=== PATIENT | male | born 1980 | race American Indian/Alaskan Native ===

== ENCOUNTER 2020-06-09 00:08 | Emergency (ER) | payer SELFPAY ==
[2020-06-09] MEDS ORDERED: SODIUM CHLORIDE 0.9% 1000 ML 1,000 ML ONE (00:10)
[2020-06-09] MEDS ORDERED: ADENOSINE 6 MG/2 ML INJ IV ONE ×2 (00:12→00:15)
[2020-06-09] MEDS ORDERED: dilTIAZem 25 MG/5 ML INJ IV ONE (00:20)
--- NOTE | 2020-06-09 00:25 | Emergency Department Report ---
ED Palpitations HPI - General Stated Complaint: SVT Time Seen by Provider: 06/09/20 00:12 Source: patient, EMS - History of Present Illness Initial Comments: Patient is 39 years old male with no significant past medical history except for asthma. Patient presented to the ER via EMS from a local urgent care after patient was checked in for palpitation patient found to have SVT on an EKG with a heart rate of 210. Patient is started on oxygen and some vagal maneuver with no improvement. Upon arrival to the ER patient is alert, oriented x3 in no acute distress. Patient is complaining of chest pain and shortness of breath. 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 Patient given adenosine 6 mg with no improvement followed by another 12 mg with no change. Patient given 10 mg of Cardizem and patient immediately converted with a heart rate of 109 beats per minutes. Patient stated that he is feeling much better. MD Complaint: rapid heart beat, "heart racing", palpitations -: Sudden, This evening Context: occured during rest - Related Data Allergies Allergy/AdvReac Type Severity Reaction Status Date / Time iodine Allergy Shortness Verified 06/09/20 00:39 of Breath ED Review of Systems ROS: Stated complaint: SVT Other details as noted in HPI Comment: All other systems reviewed and negative Constitutional: denies: chills, fever Respiratory: denies: cough, shortness of breath, SOB with exertion, SOB at rest, wheezing Cardiovascular: denies: chest pain, palpitations Gastrointestinal: denies: abdominal pain, nausea, vomiting Musculoskeletal: denies: back pain Neurological: denies: headache, weakness, numbness, paresthesias, confusion, abnormal gait ED Physical Exam - General General appearance: alert, in no apparent distress - Head Head exam: Present: atraumatic, normocephalic, normal inspection - Eye Eye exam: Present: normal appearance - ENT ENT exam: Present: normal orophraynx - Neck Neck exam: Present: normal inspection, full ROM. Absent: tenderness, meningismus - Respiratory Respiratory exam: Present: normal lung sounds bilaterally - Cardiovascular Cardiovascular Exam: Present: tachycardia - GI/Abdominal GI/Abdominal exam: Present: soft, normal bowel sounds. Absent: distended, tenderness, guarding, rebound, rigid, mass, bruit, pulsatile mass, hernia - Extremities Exam Extremities exam: Present: normal inspection, full ROM, normal capillary refill - Back Exam Back exam: Present: normal inspection, full ROM. Absent: CVA tenderness (R), CVA tenderness (L) - Neurological Exam Neurological exam: Present: alert, oriented X3, CN II-XII intact, normal gait, reflexes normal - Psychiatric Psychiatric exam: Present: normal mood - Skin Skin exam: Present: warm, intact, normal color ED Course Vital Signs 06/09/20 06/09/20 06/09/20 00:12 00:20 00:35 Temperature 99.5 F Pulse Rate 220 H 220 H Respiratory 16 20 Rate Blood Pressure 103/53 108/52 O2 Sat by Pulse 99 Oximetry 06/09/20 06/09/20 06/09/20 00:38 00:40 00:46 Temperature Pulse Rate 103 H 106 H 107 H Respiratory 10 L 16 16 Rate Blood Pressure 105/78 102/75 O2 Sat by Pulse 100 100 100 Oximetry 06/09/20 06/09/20 06/09/20 00:50 00:56 01:00 Temperature Pulse Rate 105 H 113 H 106 H Respiratory 21 21 20 Rate Blood Pressure 105/75 105/75 101/69 O2 Sat by Pulse 100 100 100 Oximetry 06/09/20 06/09/20 06/09/20 01:06 01:10 01:16 Temperature Pulse Rate 104 H 104 H 101 H Respiratory 16 14 12 Rate Blood Pressure 97/68 94/61 108/71 O2 Sat by Pulse 100 100 100 Oximetry 06/09/20 06/09/20 06/09/20 01:30 01:46 02:00 Temperature Pulse Rate 98 H 93 H 98 H Respiratory 17 13 16 Rate Blood Pressure 110/67 106/74 107/66 O2 Sat by Pulse 100 100 98 Oximetry 06/09/20 06/09/20 06/09/20 02:16 02:30 02:46 Temperature Pulse Rate 99 H 92 H 88 Respiratory 20 18 15 Rate Blood Pressure 102/71 102/71 105/78 O2 Sat by Pulse 100 100 100 Oximetry ED Medical Decision Making - Lab Data Result diagrams: 06/09/20 01:24 06/09/20 01:24 - EKG Data -: EKG Interpreted by Ok Rate: tachycardia - EKG Data 06/09/20 03:02 SVT with a heart rate of 205. - Radiology Data Radiology results: report reviewed - Medical Decision Making Patient is 39 years old male with no significant past medical history except for asthma. Patient presented to the ER via EMS from a local urgent care after patient was checked in for palpitation patient found to have SVT on an EKG with a heart rate of 210. Patient is started on oxygen and some vagal maneuver with no improvement. Upon arrival to the ER patient is alert, oriented x3 in no acute distress. Patient is complaining of chest pain and shortness of breath. 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 Patient given adenosine 6 mg with no improvement followed by another 12 mg with no change. Patient given 10 mg of Cardizem and patient immediately converted with a heart rate of 109 beats per minutes. Patient stated that he is feeling much better. Patient remained asymptomatic in the emergency room. Patient observed in the ER for more than 3 hours with no recurrence of his SVT. Labs reviewed and is unremarkable. Chest x-ray is negative. Patient advised to follow-up with cardiology in the next 2 to 3 days and to return to the ER if he develop any new symptoms. Critical Care Time: Yes Critical care time in (mins) excluding proc time.: 30 Critical care attestation.: If time is entered above; I have spent that time in minutes in the direct care of this critically ill patient, excluding procedure time. ED Disposition Clinical Impression: Sustained SVT Disposition: DC-01 TO HOME OR SELFCARE Is pt being admited?: No Condition: Stable Instructions: Supraventricular Tachycardia, Adult Referrals: PRIMARY CARE [Primary Care Provider] - 3-5 Days [facility] [Provider Group] - 3-5 Days
--- NOTE | 2020-06-09 00:45 | XRay Report ---
XR chest 1V ap INDICATION / CLINICAL INFORMATION: Chest Pain. COMPARISON: None available. FINDINGS: SUPPORT DEVICES: None. HEART /PULMONARY VASCULATURE: No significant abnormality. LUNGS / PLEURA: No significant pulmonary or pleural abnormality. No pneumothorax. ADDITIONAL FINDINGS: No significant additional findings. IMPRESSION: 1. No acute findings. Signer Name: Joon Rg MD Signed: 06/09/2020 12:40 AM Workstation Name: [id number]
[2020-06-09] MEDS ORDERED: SODIUM CHLORIDE 0.9% 1000 ML 1,000 ML IV ONE ×2 (00:47→00:48)
[2020-06-09 00:53] LABS: Mean Corpuscular HGB Conc 34 % (32-34); Mean Corpuscular Volume 104 fl (84-94); Platelet Count 130 K/mm3 (140-440); Red Blood Count 1.41 M/mm3 (3.65-5.03); Red Cell Distribution Width 14.1 % (13.2-15.2)
[2020-06-09 00:56] LABS: Blood Urea Nitrogen 4 mg/dL (9-20); Hemolysis Index 4
[2020-06-09 01:03] LABS: INR 2.84 (0.87-1.13)
[2020-06-09 01:04] LABS: Partial Thromboplastin Time 49.6 Sec. (24.2-36.6)
[2020-06-09 01:15] LABS: Hematocrit 14.7 % (35.5-45.6)
[2020-06-09 01:20] LABS: BUN/Creatinine Ratio 20
[2020-06-09 01:21] LABS: Calcium 2.4 mg/dL (8.4-10.2)
[2020-06-09 01:44] LABS: Amphetamine Screen,Urine PRESUMPTIVE NEGATIVE; Benzodiazepines Screen,Urine PRESUMPTIVE NEGATIVE; Cannabinoid Screen,Urine PRESUMPTIVE NEGATIVE; Cocaine Screen,Urine PRESUMPTIVE NEGATIVE; Methadone Screen,Urine PRESUMPTIVE NEGATIVE; Opiate Screen,Urine PRESUMPTIVE NEGATIVE
[2020-06-09 02:02] LABS: Basophils % (Auto) 0.4 % (0.0-1.8); Eosinophils # (Auto) 0.1 K/mm3 (0.0-0.4); Eosinophils % (Auto) 2.2 % (0.0-4.3); Lymphocytes % (Auto) 18.2 % (13.4-35.0); Mean Corpuscular HGB Conc 34 % (32-34); Mean Corpuscular Volume 103 fl (84-94); Monocytes # (Auto) 0.8 K/mm3 (0.0-0.8); Red Cell Distribution Width 14.1 % (13.2-15.2)
[2020-06-09 02:12] LABS: INR 1.04 (0.87-1.13)
[2020-06-09 02:13] LABS: Partial Thromboplastin Time 25.2 Sec. (24.2-36.6)
[2020-06-09 02:18] LABS: BUN/Creatinine Ratio 11; Blood Urea Nitrogen 12 mg/dL (9-20); Calcium 8.5 mg/dL (8.4-10.2); Hemolysis Index 4
[2020-06-09 02:28] LABS: Hematocrit 36.9 % (35.5-45.6); Hemoglobin 12.6 gm/dl (11.8-15.2); Platelet Count 295 K/mm3 (140-440)
[2020-06-09 02:53] VITALS: BP 105/78
[2020-06-09 03:42] LABS: Platelet Estimate Consistent w Auto; RBC Morphology Normal; Total Cells Counted 100
== END 2020-06-09 03:19 | disposition home or self-care (01) ==
LOC: ED 00:08
DX: I47.1 Supraventricular tachycardia (principal); Z91.041 Radiographic dye allergy status
CPT/HCPCS: 36415; 71045; 80048; 80307; 84484; 85007; 85025; 85610; 85730; 93005; 96361; 96374; 96375; 99284; J7030